=== PATIENT | male | born 1990 | race Two or more races ===

== ENCOUNTER 2019-04-27 00:21 | Emergency (ER) | payer OTHER ==
[2019-04-27 00:35] VITALS: BMI 26.0
--- NOTE | 2019-04-27 00:39 | PDOC ---
History of Present Illness - General Chief Complaint: Pain, Acute Stated Complaint: ABD PAIN Time Seen by Provider: 04/27/19 00:38 History Source: Patient Exam Limitations: No Limitations - History of Present Illness Initial Comments: Milan Gallardo is a 29 yo M who denies having any pmh who presents to the [facility] ER via private auto with LLQ abdominal pain. The patient currently rates his pain as 4/10 in intensity but over the past 3 days it has been 7/10. He describes the pain as a sharp sensation. The pain has been on and off over the past 3 days but has not gotten worse. The pain radiates to the lower part of his abdomen but does not radiate to his groin or his back. Patient had a normal bowel movement today. Patient states he tried taking ibuprofen for the pain at home and it helped. The patient states he has experienced this pain around ten times in his life. In the past, 2 years ago, when he has felt this pain it was once associated with blood in his stool. There is no blood in his stool this time or in the past 3 days. Patient denies a personal or family hx of kidney stones. The patient denies associated fevers, nausea, vomiting, diarrhea, or constipation. PCP: None PSH: None reported Social Hx: Drinks recreationally. Denies cigarettes or illicit drug usage. Allergies: NKA, NKDA Past History - Past Medical History Allergies/Adverse Reactions: Allergies Allergy/AdvReac Type Severity Reaction Status Date / Time No Known Allergies Allergy Verified 04/27/19 00:32 Home Medications: Ambulatory Orders Ibuprofen [Motrin -] 600 mg PO TID #30 tablet 04/27/19 - Suicide/Smoking/Psychosocial Hx Smoking History: Never smoked Have you smoked in the past 12 months: No Information on smoking cessation initiated: No Hx Alcohol Use: No Drug/Substance Use Hx: No Review of Systems - Review of Systems Able to Perform ROS?: Yes Comments:: CONSTITUTIONAL: Absent: fever, chills, diaphoresis, generalized weakness, malaise, loss of appetite HEENT: Absent: rhinorrhea, nasal congestion, throat pain, throat swelling, difficulty swallowing, mouth swelling, ear pain, eye pain, visual Changes CARDIOVASCULAR: Absent: chest pain, syncope, palpitations, irregular heart rate, lightheadedness , peripheral edema RESPIRATORY: Absent: cough, shortness of breath, dyspnea with exertion, orthopnea, wheezing, stridor, hemoptysis GASTROINTESTINAL: Present: Abdominal pain Absent: abdominal distension, nausea, vomiting, diarrhea, constipation, melena, hematochezia GENITOURINARY: Absent: dysuria, frequency, urgency, hesitancy, hematuria, flank pain, genital pain MUSCULOSKELETAL: Absent: myalgia, arthralgia, joint swelling SKIN: Absent: rash, itching, pallor HEMATOLOGIC/IMMUNOLOGIC: Absent: easy bleeding, easy bruising, lymphadenopathy, frequent infections ENDOCRINE: Absent: unexplained weight gain, unexplained weight loss, heat intolerance, cold intolerance NEUROLOGIC: Absent: headache, focal weakness or paresthesias, dizziness, unsteady gait, seizure, mental status changes, bladder or bowel incontinence PSYCHIATRIC: Absent: anxiety, depression, suicidal or homicidal ideation, hallucinations. : Yes: Symptoms Reported, See HPI. No: Burning, Dysuria, Discharge, Frequency , Flank Pain, Hematuria, Incontinence, Pain, Urgency, Testicular Mass, Testicular Swelling, Lesions, Testicular Pain *Physical Exam - Vital Signs Last Vital Signs Temp Pulse Resp BP Pulse Ox 98.4 F 84 18 101/71 98 04/27/19 00:32 04/27/19 00:32 04/27/19 00:32 04/27/19 00:32 04/27/19 00:32 - Physical Exam Comments: GENERAL: Well developed, well nourished. Awake and alert. No acute distress. HEENT: Normocephalic, atraumatic. PERRLA, EOMI. No conjunctival pallor. Sclera are non- icteric. Moist mucous membranes. Oropharynx is clear. NECK: Supple. Full ROM. No JVD. No lymphadenopathy. CARDIOVASCULAR: Regular rate and rhythm. No murmurs, rubs, or gallops. Distal pulses are 2+ and symmetric. PULMONARY: No evidence of respiratory distress. Lungs clear to auscultation bilaterally. No wheezing, rales or rhonchi. ABDOMINAL: There is LLQ abdominal TTP. There is also suprapubic TTP as well as mild RLQ TTP. Abdomen is still soft and non-distended. No rebound or guarding. No organomegaly. Normoactive bowel sounds. MUSCULOSKELETAL Normal range of motion at all joints. No bony deformities or tenderness. No CVA tenderness. EXTREMITIES: No cyanosis. No clubbing. No edema. No calf tenderness. SKIN: Warm and dry. Normal capillary refill. No rashes. No jaundice. NEUROLOGICAL: Alert, awake, appropriate. Cranial nerves 2-12 intact. No deficits to light touch in face, upper extremities and lower extremities. No motor deficits in the in face, upper extremities and lower extremities. Normal speech. Gait is normal without ataxia. PSYCHIATRIC: Cooperative. Good eye contact. Appropriate mood and affect. Male Genitalia: positive: normal genitalia. negative: discharge, testicular tenderness, testicular mass, epididymus tender, inguinal hernia, hernia, CVAT ED Treatment Course - LABORATORY CBC & Chemistry Diagram: 04/27/19 01:23 04/27/19 01:23 - RADIOLOGY Radiograph Interpretation: CTAP: Spleen: Normal Pancreas: Normal Gallbladder: Normal Stomach: Normal Small bowel: Normal Large bowel: Normal Appendix: Normal Adrenals:Normal Kidneys: Normal Vascular: Normal Lymphatic: Normal Peritoneal: No free peritoneal air or fluid. There is a 9 mm fat density adjacent to the sigmoid colon with a surrounding soft tissue density ring. The appearance suggests epiploic appendagitis Pelvis: Prostate: normal Rectum: Normal Bladder: Normal The inferior thorax: Normal General: Skeletal: Normal Abdominal wall: Normal IMPRESSION: Ringed fat density adjacent to the sigmoid colon suggests epiploic appendagiitis One or more of the following dose reduction techniques were used: automated exposure control, adjustment of the mA and/or kV according to patient size, use of iterative reconstructive technique. Medical Decision Making - Medical Decision Making Milan Gallardo is a 29 yo M who denies having any pmh who presents to the [facility] ER via private auto with LLQ abdominal pain. The patient currently rates his pain as 4/10 in intensity but over the past 3 days it has been 7/10. He describes the pain as a sharp sensation. The pain has been on and off over the past 3 days but has not gotten worse. The pain radiates to the lower part of his abdomen but does not radiate to his groin or his back. Patient had a normal bowel movement today. Patient states he tried taking ibuprofen for the pain at home and it helped. The patient states he has experienced this pain around ten times in his life. In the past, 2 years ago, when he has felt this pain it was once associated with blood in his stool. There is no blood in his stool this time or in the past 3 days. Patient denies a personal or family hx of kidney stones. Vital Signs Temp Pulse Resp BP Pulse Ox 98.4 F 84 18 101/71 98 04/27/19 00:32 04/27/19 00:32 04/27/19 00:32 04/27/19 00:32 04/27/19 00:32 DDx IBNLT: diverticulitis vs diverticulosis, colitis, UTI, pylo, hernia, electrolyte/metabolic disturbance, renal colic Plan: Labs, urine, IV hydration, analgesia, likely CTAP, re-assess. Labs: Cbc normal. CMP unremarkable. PT/INR normal. Urine: Trace ketonuria, no signes of infection and no blood in urine. CTAP: Shows epiploic appendagitis Re-assessment: Patient feels better after analgesia and requests to be discharged. Disposition: Will send home with PCP referall and script for NSAIDs - Return precautions discussed. *DC/Admit/Observation/Transfer Diagnosis at time of Disposition: Epiploic appendagitis - Discharge Dispostion Disposition: HOME Condition at time of disposition: Improved Decision to Admit order: No - Prescriptions Prescriptions: Ibuprofen [Motrin -] 600 mg PO TID #30 tablet - Referrals Referrals: [facility] [place] [facility] [place] [facility] [place] [Provider Group] - Patient Instructions Printed Discharge Instructions: Acute Abdominal Pain Additional Instructions: You came into the ER with abdominal pain. We did a cat scan which showed you have what is called epiploic appendagitis. This condition is treated by taking anti-inflammatory medications like ibuprofen/motrin/advil/alleve/naproxen Please make sure to call up the primary care doctor we are referring you to and schedule a follow up appointment in the next 3 to 5 days to make sure you are getting better and feeling well. Come back to the Er immediately if your pain worsens or you have any other new or worsening concerns. thank you for coming to the [facility] ER. We hope you feel better soon! Print Language: SWISS - Post Discharge Activity
[2019-04-27] MEDS ORDERED: SODIUM CHLORIDE 1,000 ML IV STA (00:49)
[2019-04-27] MEDS ORDERED: ACETAMINOPHEN 325 MG TABLET (FP) PO ONE (00:50)
[2019-04-27] MEDS ORDERED: ACETAMINOPHEN 325 MG TABLET (FP) ONE (01:50)
[2019-04-27 01:51] LABS: BASO % 0.3 % (0-2.0); EOS % 1.5 % (0-4.5); HEMOGLOBIN 15.4 GM/dL (11.7-16.9); LYMPH % 30.2 % (8-40); MCH 29.8 pg (25.7-33.7); MCHC 34.3 g/dl (32.0-35.9); MEAN PLT VOLUME 7.7 fl (7.5-11.1); MONO % 9.1 % (3.8-10.2); NEUT % 58.9 % (42.8-82.8); PLATELET COUNT 228 K/MM3 (134-434); RBC 5.17 M/mm3 (4.00-5.60); RDW 13.9 % (11.9-15.9); WHITE BLOOD COUNT 7.8 K/mm3 (4.0-10.0)
[2019-04-27 02:03] LABS: URINE APPEARANCE CLEAR; URINE BILIRUBIN NEGATIVE (NEGATIVE); URINE COLOR YELLOW; URINE GLUCOSE (UA) NEGATIVE (NEGATIVE); URINE KETONE TRACE (NEGATIVE); URINE LEUK ESTERASE NEGATIVE (NEGATIVE); URINE NITRITE NEGATIVE (NEGATIVE); URINE PROTEIN NEGATIVE (NEGATIVE)
[2019-04-27 02:05] LABS: INR 1.04 (0.83-1.09); PROTHROMBIN TIME (PATIENT) 12.3 SEC (9.7-13.0)
--- NOTE | 2019-04-27 02:08 | PDOC ---
Attending Attestation - Resident Resident Name: Gibson Freitas - ED Attending Attestation I have performed the following: I have examined & evaluated the patient, The case was reviewed & discussed with the resident, I agree w/resident's findings & plan - HPI HPI: 04/27/19 02:06 Pt comes with LLQ pain that he has been experiening on and off for years. He has never had any imaging of his abd/pelvis - Physicial Exam PE: 04/27/19 02:07 Agree with resident exam 04/27/19 02:38 Pt has no rebound and no guarding and he has no flank pain. He has + gassy bowel sounds. Pt has normal rest of exam. - Medical Decision Making 04/27/19 02:[address] scan. Labs pending. 04/27/19 02:37 Pt has LLQ pain; he fears that he has a growth in the area. Wants to make sure that he has no cancer. 04/27/19 04:43 Patient Name: MARQUES LEYVA THIS IS A PRELIMINARY REPORT FROM [facility] DATE OF SERVICE: 2019-04-27 04:00:47 IMAGES: [id number] EXAM: CT ABDOMEN \T\ PELVIS CT WITH CONTR HISTORY: Left lower quadrant abdominal pain COMPARISON: None. FINDINGS: Abdomen Liver: Radiology area questioned findings Spleen: Normal Pancreas: Normal Gallbladder: Normal Stomach: Normal Small bowel: Normal Large bowel: Normal Appendix: Normal Adrenals:Normal Kidneys: Normal Vascular: Normal Lymphatic: Normal Peritoneal: No free peritoneal air or fluid. There is a 9 mm fat density adjacent to the sigmoid colon with a surrounding soft tissue density ring. The appearance suggests epiploic appendagitis Pelvis: Prostate: normal Rectum: Normal Bladder: Normal The inferior thorax: Normal General: Skeletal: Normal Abdominal wall: Normal IMPRESSION: Ringed fat density adjacent to the sigmoid colon suggests epiploic appendagiitis 04/27/19 06:22 Medical treatment. Pt understands that if the pain gets worse that he needs to return for fever or pain so that he may have surgical treatment as needed. He will follow with gen surg clinic or his PMD Heart Score/ECG Review - ECG Intrepretation Rhythm: Regular Rhythm - [place]: Normal - P and FL Delta Wave(s) Present: No WPW: No - ST and T Early Repolarization: No Non Specific ST-T Wave changes: No - ECG Impressions Normal ECG: Yes Non-specific ST Elevation: No Ischemic Changes: No Bradycardia: No
[2019-04-27 02:21] LABS: ALBUMIN 3.9 g/dl (3.4-5.0); BILIRUBIN,TOTAL 0.4 mg/dL (0.2-1); BLOOD UREA NITROGEN 12.5 mg/dL (7-18); CALCIUM 8.5 mg/dL (8.5-10.1); POTASSIUM 3.9 mmol/L (3.5-5.1); TOT PROT 7.4 g/dl (6.4-8.2)
[2019-04-27] MEDS ORDERED: IBUPROFEN 400 MG TABLET (FP) PO ONE ×2 (04:46→04:52)
[2019-04-27 05:31] VITALS: BP 111/78; PULSE 76; TEMP 97
--- NOTE | 2019-04-27 17:42 | EKG ---
Test Reason : Blood Pressure : / mmHG Vent. Rate : 071 BPM Atrial Rate : 071 BPM P-R Int : 162 ms QRS Dur : 084 ms QT Int : 398 ms P-R-T Axes : 033 078 042 degrees QTc Int : 432 ms NORMAL SINUS RHYTHM NORMAL ECG NO PREVIOUS ECGS AVAILABLE Confirmed by ITALIA SANDOVAL MD ([id number]) on 04/27/2019 5:42:37 PM Referred By: Confirmed By:ITALIA SANDOVAL MD
== END 2019-04-27 05:20 | disposition home or self-care (01) ==
LOC: JER 00:21
PROC: 3E0337Z Introduction of Electrolytic and Water Balance Substance into Peripheral Vein, Percutaneous Approach (ICD-10-PCS; principal; 2019-04-27)
DX: K63.89 Other specified diseases of intestine (principal)
CPT/HCPCS: 36415; 74177-TC; 80053; 81003; 83605; 83690; 85025; 85610; 86850; 86900; 86901; 87086; 93005; 93010; 99283-25; J7030